=== PATIENT | male | born 1960 | race Caucasian/White ===

== ENCOUNTER 2023-07-04 07:55 | Outpatient (CLI) | payer OTHER, SELFPAY | END 2023-07-04 07:56 | disposition home or self-care (01) | LOC: NFLDREF 07-06 09:52 | PROVIDERS: PCP Family Medicine; Referring Provider Family Medicine; Visit Provider Family Medicine | DX: E78.00 Pure hypercholesterolemia, unspecified (principal); R79.89 Other specified abnormal findings of blood chemistry | CPT/HCPCS: 80061; 80076 ==

== ENCOUNTER 2023-07-21 09:51 | Outpatient (CLI) | payer OTHER, SELFPAY | END 2023-07-21 09:52 | disposition home or self-care (01) | LOC: FBOREF 09:53 | PROVIDERS: PCP Family Medicine; Visit Provider Family Medicine | DX: N52.9 Male erectile dysfunction, unspecified (principal); R79.89 Other specified abnormal findings of blood chemistry | CPT/HCPCS: 84270; 84402; 84403 ==

== ENCOUNTER 2024-05-30 08:11 | Outpatient (CLI) | payer OTHER, SELFPAY ==
--- OUTSIDE RECORDS SUMMARY | 2024-06-01 09:40 | XMS_ITS | Clinical Summary ---
Author Organization [place] Address [address] [place] [address] Care Team Providers Care Highway Administrative Engineer Name Role Phone Momo Beyer MD Primary Care Provider [phone] Huma Baeza MD Unavailable [phone] Jody Vallejo APRN GRANITE CUTTER Unavailable Jorge Gonzales MD Unavailable [phone] Brendan Martino MD Unavailable [phone] Hilario Levine MD Unavailable Allergies No known active allergies Medications Medication Sig Dispensed Refills Start Date End Date Status loratadine (CLARITIN) 10 MG tablet Take 10 mg by mouth daily Active Naproxen Sodium (ALEVE PO) Active multivitamin w/minerals (THERA-VIT-M) tablet Take 1 tablet by mouth daily Active [place]-3 Fatty Acids (OMEGA-3 FISH OIL PO) Take 1 g by mouth daily Active ASPIRIN PO Take 81 mg by mouth Active fluticasone (FLONASE) 50 MCG/ACT nasal spray 1 09/01/2018 Ac tive cetirizine (ZYRTEC) 10 MG tablet Take 10 mg by mouth Active rosuvastatin (CRESTOR) 5 MG tablet 05/07/2019 Active tadalafil (CIALIS) 5 MG tablet 04/14/2024 Active valACYclovir (VALTREX) 1000 mg tabletIndications:Herp es zoster without complication Take 1 tablet (1,000 mg) by mouth 3 times daily for 7 days 21 tablet 05/16/2024 Active Active Problems Problem Noted Date Diagnosed Date Seasonal allergic rhinitis due to pollen 016 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 11/06/2013 Encounters Date Type Department Care Team Description 05/16/2024 12:00 PM CDT Office Visit [facility] [address] [place] [address] Zari Pastor MD Herpes zoster without complication (Primary Dx) 05/16/2024 Travel from Last 3 Months Immunizations Name Administration Dates Next Due Influenza (IIV3) PF 09/14/2016, 3,09/16/2011,09/24/2010,08/07/20 09,09/13/2008,08/29/2007,10/07/2003 TDAP Vaccine (Boostrix) 07/13/2016 Family History Medical History Relation Comments Sleep Apnea Brother 3 Alzheimer Disease Father Alzheimer Disease Mother Breast Cancer Mother Diabetes Mother Hypertension Mother Sleep Apnea Mother Sleep Apnea Sister 3 Sleep Apnea Sister 4 Cancer No family hx of no family hx of skin cancers Melanoma No family hx of Skin Cancer No family hx of Relation Status Comments Brother 1 Alive healthy Brother 2 Alive healthy Brother 3 Father Alive Mother Sister 1 Alive healthy Sister 2 Alive healthy Sister 3 Sister 4 Social History Tobacco Use Types Packs/Day Years Used Date Smoking Tobacco: Never Smokeless Tobacco: Never Tobacco Cessation:Counseling Given: Not Answered Alcohol Use Standard Drinks/Week Comments Not Asked 0 (1 standard drink = 0.6 oz pur e alcohol) minimal PHQ-2 Answer Date Recorded PHQ-2 Score 0 03/24/2023 Adolescent Education Answer Date Record ed Getting School Help Needed Not on file 07/29 Sex and Gender Information Value Date Recorded Sex Assigned at Male 02/03/2019 7:44 PM CDT Gender Identity Male 02/03/2019 7:44 PM CDT Sexual Orientation Choose not to disclose 2020 10:24 AM PURCHASING INTERN Last Filed Vital Signs Vital Sign Reading Time Taken Comments Blood Pressure 111/73 05/16/2024 11:54 AM CDT Pulse 104 05/16/2024 11:54 AM CDT Temperature 36.4 ??C (97.6 ??F) 05/16/2024 1 1:54 AM CDT Respiratory Rate 18 06/26/2013 4:15 PM CDT Oxygen Saturation 95% 05/16/2024 11: 54 AM CDT Inhaled Oxygen Concentration - - Weight 104.9 kg (231 lb 3.2 oz) 016 12:48 PM PURCHASING INTERN Height 177.3 cm (5' 9.8) 09/14/2016 12 :48 PM PURCHASING INTERN Body Mass Index 33.36 09/14/2016 12:48 PM PURCHASING INTERN Plan of Treatment Upcoming Encounters Date Type Department Care Team (Late st Contact Info) Description 06/21/2024 8:00 AM CDT Office Visit [facility] [address] [place] [address] Hilario Levine MD [address] [place] [address] [id number] Health Maintenance Due Date Last Done Comments ADVANCE CARE PLANNING 1962 ANNUAL REVIEW OF HM ORDERS 1962 CT COLONOGRAPHY 1962 FIT 1962 FLEX SIG 1962 YEARLY PREVENTIVE VISIT 1962 sDNA (Cologuard) 1962 COLONOSCOPY 1972 COLORECTAL CANCER SCREENING 1972 HIV SCREENING 1977 ZOSTER IMMUNIZATION (1 of 2) 2012 LIPID 12/27/2017 12/27/2016 GLUCOSE 12/27/2019 12/27/2016 RSV VACCINE ( & 60+) (1 - 1-dose 60+ series) 2022 COVID-19 Vaccine (3 - 2022- season) 2023 03/26/2021, 03/05/2021 PHQ-2 (once per calendar year) 2023 03/24/2023, 03/15/2022, 03/12/2020, Additional history exists INFLUENZA VACCINE (#1) 2024 , 08/30/2022, 08/30/2022, Additional history exists DTAP/TDAP/TD IMMUNIZATION (8 - Td or Tdap) 04/16/2032 04/16/2022, 07/13/2016, 12/21/2011, Additional history exists HEPATITIS C SCREENING Completed 12/27/2016 HPV IMMUNIZATION Aged Out No longer e ligible based on patient's age to complete this topic IPV IMMUNIZATION Aged Out No longer e ligible based on patient's age to complete this topic MENINGITIS IMMUNIZATION Aged Out No l onger eligible based on patient's age to complete this topic Pneumococcal Vaccine: Pediatrics (0 to 5 Years) and At-Risk Patients (6 to 64 Years) Aged Out No longer eligible based on patient's age to complete this topic RSV MONOCLONAL ANTIBODY Aged Out No l onger eligible based on patient's age to complete this topic Procedures Procedure Name Priority Date/Time Associated Diagnosis Comments BASIC METABOLIC PANEL Routine 12/27/2016 8:38 AM PURCHASING INTERN Family history of hypercholesterolemia HEPATITIS C SCREEN REFLEX TO HCV RNA QUANT AND GENOTYPE Routine 12/27/2016 8:38 AM PURCHASING INTERN Need for hepatitis C screening test LIPID REFLEX TO DIRECT LDL PANEL Routine 12/27/2016 8:38 AM PURCHASING INTERN Family history of hypercholesterolemia from Last 3 Months or Most Recently Relevant to Health Maintenance Results * Hepatitis C Screen Reflex to HCV RNA Quant and Genotype (12/27/2016 8:38 AM PURCHASING INTERN) Hepatitis C Antibody Nonreactive Assay performance characteristics have not been established for newborns, infants, and children NR [facility] Blood specimen (specimen) 12/27/2016 8:38 AM PURCHASING INTERN 12/27/2016 8:39 AM PURCHASING INTERN Jody Vallejo APRN GRANITE CUTTER LAB - BLOOD O RDERABLES [facility] [address] [place] [address] * (ABNORMAL) Lipid panel reflex to direct LDL - -(Today) (12/27/2016 8:38 AM PURCHASING INTERN) Cholesterol 167 <200 mg/dL [facility] Triglycerides 78 <150 mg/dL [facility] HDL Cholesterol 40 >39 mg/dL [facility] LDL Cholesterol Calculated 112(H) <100 mg/dL [facility] Comment: Above desirable: ??100-129 mg/dl Borderline High: ??130-159 mg/dL High: ? 160-189 mg/dL Very high: ? >189 mg/dl Non HDL Cholesterol 127 <130 mg/dL [facility] Blood specimen (specimen) 12/27/2016 8:38 AM PURCHASING INTERN 12/27/2016 8:39 AM PURCHASING INTERN Jody Vallejo APRN GRANITE CUTTER LAB - BLOOD O RDERABLES [address] [phone] * Basic metabolic panel (12/27/2016 8:38 AM PURCHASING INTERN) Sodium 141 133 - 144 mmol/L [facility] Potassium 4.5 3.4 - 5.3 mmol/L [facility] Chloride 107 94 - 109 mmol/L [facility] Carbon Dioxide 27 20 - 32 mmol/L [facility] Anion Gap 6 3 - 14 mmol/L [facility] Glucose 86 70 - 99 mg/dL [facility] Urea Nitrogen 17 7 - 30 mg/dL [facility] Creatinine 0.84 0.66 - 1.25 mg/dL [facility] GFR Estimate >90 Non GFR Calc >60 mL/min/1. 7m2 [facility] GFR Estimate If Black >90 GFR Calc >60 mL/min/1. 7m2 [facility] Calcium 8.9 8.5 - 10.1 mg/dL [facility] Blood specimen (specimen) 12/27/2016 8:38 AM PURCHASING INTERN 12/27/2016 8:39 AM PURCHASING INTERN Jody Vallejo APRN GRANITE CUTTER LAB - BLOOD O RDERABLES [facility] [address] [address], [facility] [[email or web address]] [phone] from Last 3 Months or Most Recently Relevant to Health Maintenance Care Teams Highway Administrative Engineer Relationship Specialty Start Date End Date Momo Beyer MD [facility] [address] [place] [address] PCP - General Family Practice 12/15/15 Huma Baeza MD 420 [facility] [address] [place], [place] [address] Dermatology 12/21/16 Jody Vallejo APRN GRANITE CUTTER 420 [facility] [address] [place], [place] [address] Nurse Practitioner Nurse Practitioner 12/21/16 Jorge Gonzales MD [address] [place] [address] Dermatology 03/08/19 Brendan Martino MD [facility] [address] [place] [address] [id number] Assigned Surgical Provider 11/06/22 Hilario Levine MD [address] [place] [address] Medical Student 03/02/24
--- OUTSIDE RECORDS SUMMARY | 2024-06-01 09:41 | XMS_ITS | Encounter Summary ---
Author Organization [facility] Address [address] [place] [address]. [place] [address] Care Team Providers Care Data Operations Manager Name Role Phone Heath Paris MD Unavailable Momo Beyer MD Primary Care Provider [phone] Huma Baeza MD Unavailable Jody Vallejo APRN COMMUNITY RECREATION COORDINATOR Unavailable Jorge Gonzales MD Unavailable Huma Baeza MD Unavailable Huma Baeza MD Unavailable Brendan Martino MD Unavailable Hilario Levine MD Unavailable Encounter Details Date Type Department Care Team (Late st Contact Info) Description 12/30/2016 [facility] [place] [facility] [address] [facility] [address] 4th [place] [address] Jody Vallejo APRN COMMUNITY RECREATION COORDINATOR [address] [facility] [address] [place] [address] Social History Tobacco Use Types Packs/Day Years Used Date Smoking Tobacco: Never Alcohol Use Standard Drinks/Week Comments Not Asked 0 (1 standard drink = 0.6 oz pur e alcohol) minimal Sex and Gender Information Value Date Recorded Sex Assigned at Male 02/03/2019 7:44 PM CDT Gender Identity Male 02/03/2019 7:44 PM CDT Sexual Orientation Choose not to disclose 2020 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 [address] [place] [address] PCP - General Family Practice 12/15/15 Heath Paris MD [facility] [address] [place] [address] Dermatology 12/15/15 05/23/18 Huma Baeza MD 420 [facility] [address] [place], [place] [address] Dermatology 12/21/16 Jody Vallejo, CLOTH PICKER COMMUNITY RECREATION COORDINATOR 420 [facility] [address] [place], [place] 3[address] Nurse Practitioner Nurse Practitioner 12/21/16 Jorge Gonzales MD [address] [place] [id number] Dermatology 03/08/19 Huma Baeza MD [address] [address] Assigned Pediatric Specialist Provider 08/29/20 12/07/20 Huma Baeza MD [address] [address] Assigned Surgical Provider 08/29/20 11/05/22 Brendan Martino MD [facility] [address] [address] Assigned Surgical Provider 11/06/22 Hilario Levine MD [address] [place], [place] [address] Medical Student 03/02/24 documented as of this encounter
--- OUTSIDE RECORDS SUMMARY | 2024-06-01 09:41 | XMS_ITS | Clinical Summary ---
Author Organization [facility] Address [place], [place] [address] Care Team Providers Care Fibreglass Gun Hand Name Role Phone Momo Beyer MD Primary Care Provider [phone] Momo Beyer MD Unavailable [phone] Allergies No known active allergies Medications Medication Sig Dispensed Refills Start Date End Date Status diphenhydrAMINE (BENADRYL) 25 mg capsule Take 50 mg by mouth every 4 hours if needed. Active ibuprofen (ADVIL; MOTRIN) 200 mg capIndications:pain Take 400 mg by mouth 4 times daily if needed. Indications: PAIN Active multivitamin (MVI) tabletIndications:vi tamin deficiency prevention Take 1 tablet by mouth once daily. Indications: VITAMIN DEFICIENCY PREVENTION Active mometasone, 50 mcg each actuation, nasal (NASONEX) 50 mcg/actuation nasal spray Inhale 2 Sprays into both nostrils once daily. As needed Active phenylephrine (SUDAFED PE) 10 mg tabletIndications:na jung congestion Take 10 mg by mouth every 6 hours if needed. Indications: NASAL CONGESTION Active cetirizine (ZYRTEC) 10 mg tablet Take 10 mg by mouth. 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 Lichen simplex 06/29/2014 Tubular adenoma of colon 11/06/2013 Immunizations Name Administration Dates Next Due Influenza, High-dose Inactivated 10/19/2013 Tdap 12/21/2011 Family History Medical History Relation Name Comments Good Health Father Cancer-breast Mother Diabetes Mother Relation Name Status Comments Father Mother Social History Tobacco Use Types Packs/Day Years Used Date Smoking Tobacco: Never Smokeless Tobacco: Never Alcohol Use Standard Drinks/Week Comments Yes 0 (1 standard drink = 0.6 oz pur e alcohol) rarely Sex and Gender Information Value Date Recorded Sex Assigned at Not on file Gender Identity Not on file Sexual Orientation Not on file Obstetrics History Last Filed Vital Signs Vital Sign Reading Time Taken Comments Blood Pressure 126/82 09/14/2022 11:54 AM MANAGER OPERATING Pulse 92 09/14/2022 11:54 AM MANAGER OPERATING Temperature 36.4 ??C (97.6 ??F) 08/13/2022 1:01 PM CD T Respiratory Rate 16 08/13/2022 1:01 PM CDT Oxygen Saturation 97% 08/13/2022 1:01 PM CDT Inhaled Oxygen Concentration - - Weight 95.7 kg (211 lb) 08/13/2022 1:01 PM CDT Height 180.3 cm (5' 11) 04/16/2022 3:35 AM CDT Body Mass Index 29.43 04/16/2022 3:35 AM CDT Plan of Treatment Health Maintenance Due Date Last Done Comments Depression screening for age 12+ 1974 HIV for age 15-65 1977 BMI (ht and wt on same day) for age 18+ 1980 Hepatitis C screening for ag e 18-79 1980 Colonoscopy through age 75 2007 Lipids for age 45-75 2007 Zoster (shingles) series for age 50+ (1 of 2) 2012 Tetanus booster 12/21/2021 12/21/2011 COVID-19 vaccine series ( season) 2023 03/26/2021, 03/05/2021 Influenza for age 50-64 07/08/2024 Tdap Completed 12/21/2011 Pneumococcal series for age 6-64 Aged Out No longer eligible b ased on patient's age to complete this topic Advance Directives * Full Code (Latest Code Status on File) Date Activated Date Inactivated Comments 11/06/2013 7:47 AM 11/06/2013 10:08 AM Care Teams Fibreglass Gun Hand Relationship Specialty Start Date End Date Momo Beyer MD [address] [place] [address] PCP - General Family Practice 03/09/20 Momo Beyer MD [address] [place] [address] Family Practice 03/09/20
--- OUTSIDE RECORDS SUMMARY | 2024-06-01 09:41 | XMS_ITS | Referral Summary ---
Author Organization [facility] Address [address] [facility] [place] [address] Care Team Providers Care Program Services Assistant Name Role Phone Momo Beyer MD Primary Care Provider Huma Baeza MD Unavailable [phone] Jody Vallejo APRN THREAD CHECKER Unavailable Jorge Gonzales MD Unavailable Brendan Martino MD Unavailable [phone] Hilario Levine MD Unavailable Encounters Date Type Department Care Team Description 05/16/2024 Travel 05/16/2024 12:00 PM CDT Office Visit [facility] [address] [address] Zari Pastor MD Herpes zoster without complication (Primary Dx) from Last 3 Months Allergies No known active allergies Medications Medication Sig Dispensed Refills Start Date End Date Status loratadine (CLARITIN) 10 MG tablet Take 10 mg by mouth daily Active Naproxen Sodium (ALEVE PO) Active multivitamin w/minerals (THERA-VIT-M) tablet Take 1 tablet by mouth daily Active [place]-3 Fatty Acids (OMEGA-3 FISH OIL PO) Take [...] simplex 06/29/2014 Tubular adenoma of colon, 0.2cm [facility]. 11/06/2013 Immunizations Name Administration Dates Next Due Influenza (IIV3) PF 09/14/2016, 3,09/16/2011,09/24/2010,08/07/20 09,09/13/2008,08/29/2007,10/07/2003 TDAP Vaccine (Boostrix) 07/13/2016 Social History Tobacco Use Types Packs/Day Years [...] Choose not to disclose 2020 10:24 AM LEGAL PROJECT MANAGER Last Filed Vital Signs Vital Sign Reading Time Taken Comments Blood Pressure 111/73 05/16/2024 11:54 AM CDT Pulse 104 05/16/2024 11:54 AM CDT Temperature 36.4 ??C (97.6 ??F) 05/16/2024 1 1:54 AM CDT Respiratory Rate 18 06/26/2013 4:15 PM CDT Oxygen Saturation 95% 05/16/2024 11: 54 AM CDT Inhaled Oxygen Concentration - - Weight 104.9 kg (231 lb 3.2 oz) 016 12:48 PM LEGAL PROJECT MANAGER Height 177.3 cm (5' 9.8) 09/14/2016 12 :48 PM LEGAL PROJECT MANAGER Body Mass Index 33.36 09/14/2016 12:48 PM LEGAL PROJECT MANAGER Plan of Treatment Upcoming Encounters Date Type Department Care Team (Late st Contact Info) Description 06/21/2024 8:00 AM CDT Office Visit [facility] [address] 3rd [place] [address] Hilario Levine MD [address] [place] [address] Procedures Procedure Name Priority Date/Time Associated Diagnosis Comments BASIC METABOLIC PANEL Routine 12/27/2016 8:38 AM LEGAL PROJECT MANAGER Family history of hypercholesterolemia HEPATITIS C SCREEN REFLEX TO HCV RNA QUANT AND GENOTYPE Routine 12/27/2016 8:38 AM LEGAL PROJECT MANAGER Need for hepatitis C screening test LIPID REFLEX TO DIRECT LDL PANEL Routine 12/27/2016 8:38 AM LEGAL PROJECT MANAGER Family history of hypercholesterolemia from Last 3 Months or Most Recently Relevant to Health Maintenance Results * Hepatitis C Screen Reflex to HCV RNA Quant and Genotype (12/27/2016 8:38 AM LEGAL PROJECT MANAGER) Hepatitis C Antibody Nonreactive Assay performance characteristics have not been established for newborns, infants, and children NR [facility] Blood specimen (specimen) 12/27/2016 8:38 AM LEGAL PROJECT MANAGER 12/27/2016 8:39 AM LEGAL PROJECT MANAGER Jody Vallejo APRN THREAD CHECKER LAB - BLOOD O RDERABLES [facility] [address] [place] [address] * (ABNORMAL) Lipid panel reflex to direct LDL - -(Today) (12/27/2016 8:38 AM LEGAL PROJECT MANAGER) Cholesterol 167 <200 mg/dL [facility] Triglycerides 78 <150 mg/dL [facility] HDL Cholesterol 40 >39 mg/dL [facility] LDL Cholesterol Calculated 112(H) <100 mg/dL [facility] Comment: Above desirable: ??100-129 mg/dl Borderline High: ??130-159 mg/dL High: ? 160-189 mg/dL Very high: ? >189 mg/dl Non HDL Cholesterol 127 <130 mg/dL [facility] Blood specimen (specimen) 12/27/2016 8:38 AM LEGAL PROJECT MANAGER 12/27/2016 8:39 AM LEGAL PROJECT MANAGER Jody Vallejo APRN THREAD CHECKER LAB - BLOOD O RDERABLES Performing Organization Address City/State/[facility] Co de Phone Number [address] [phone] * Basic metabolic panel (12/27/2016 8:38 AM LEGAL PROJECT MANAGER) Sodium 141 133 - 144 mmol/L [facility] Potassium 4.5 3.4 - 5.3 mmol/L [facility] Chloride 107 94 - 109 mmol/L [facility] Carbon Dioxide 27 20 - 32 mmol/L [facility] Anion Gap 6 3 - 14 mmol/L [facility] Glucose 86 70 - 99 mg/dL [facility] Urea Nitrogen 17 7 - 30 mg/dL [facility] Creatinine 0.84 0.66 - 1.25 mg/dL [facility] GFR Estimate >90 Non GFR Calc >60 mL/min/1. 7m2 [facility] GFR Estimate If Black >90 GFR Calc >60 mL/min/1. 7m2 [facility] Calcium 8.9 8.5 - 10.1 mg/dL [facility] Blood specimen (specimen) 12/27/2016 8:38 AM LEGAL PROJECT MANAGER 12/27/2016 8:39 AM LEGAL PROJECT MANAGER Jody M Overkamp DAIRY BACTERIOLOGIST THREAD CHECKER LAB - BLOOD O RDERABLES [facility] [place] [address] [place], [place] [address] [phone] from Last 3 Months or Most Recently Relevant to Health Maintenance Care Teams Program Services Assistant Relationship Specialty Start Date End Date Momo Beyer MD [facility] [address] [place] [address] PCP - General Family Practice 12/15/15 Huma Baeza MD 420 [facility] [address] [place], [place] [address] Dermatology 12/21/16 Jody Vallejo APRN THREAD CHECKER 420 [facility] [address] [place], [place] [address] Nurse Practitioner Nurse Practitioner 12/21/16 Jorge Gonzales MD [address] [place] [place] [address] [id number] Dermatology 03/08/19 Brendan Martino MD [address] 747[address] Assigned Surgical Provider 11/06/22 Hilario Levine MD [address] [place] [id number] Medical Student 03/02/24
--- OUTSIDE RECORDS SUMMARY | 2024-06-01 09:41 | XMS_ITS | Encounter Summary ---
Author Organization [facility] Address [address] [place] [address]. [place] [address] Care Team Providers Care E Mail System Administrator Name Role Phone Momo Beyer MD Primary Care Provider [phone] Huma Baeza MD Unavailable [phone] Jody Vallejo APRN IT RECRUITER Unavailable [phone] Jorge Gonzales MD Unavailable [phone] Huma Baeza MD Unavailable [phone] Huma Baeza MD Unavailable [phone] Brendan Martino MD Unavailable [phone] Hilario Levine MD Unavailable [phone] Encounter Details Date Type Department Care Team (Late Contact Info) Description 10/04/2018 [facility] [address] [facility] 3rd [place] [address] [facility] [place] Social History Tobacco Use Types Packs/Day Years [...] Choose not to disclose 2020 10:24 AM CLERK ANALYST documented as of this encounter Plan of Treatment Upcoming Encounters Date Type Department Care Team (Late Contact Info) Description 06/21/2024 8:00 AM CDT Office Visit [facility] [place] [address] [facility] 3rd [place] [phone] Hilario Levine MD [address] [place] [address] documented as of this encounter Visit Diagnoses Not on filedocumented in this encounter Care Teams E Mail System Administrator Relationship Specialty Start Date End Date Momo Beyer MD [facility] [address] [place] [address] PCP - General Family Practice 12/15/15 Huma Baeza MD [address] [address] Dermatology 12/21/16 Jody Vallejo APRN IT RECRUITER 420 [facility] [address] [place] [address] Nurse Practitioner Nurse Practitioner 12/21/16 Jorge Gonzales MD [address] [place] [address] Dermatology 03/08/19 Huma Baeza MD 420 [facility] [address] [place] [address] Assigned Pediatric Specialist Provider 08/29/20 12/07/20 Huma Baeza MD 420 [facility] [address] [place] [address] Assigned Surgical Provider 08/29/20 11/05/22 Brendan Martino MD [facility] [address] [id number] Assigned Surgical Provider 11/06/22 Hilario Levine MD [address] [place] [id number] Medical Student 03/02/24 documented as of this encounter
--- OUTSIDE RECORDS SUMMARY | 2024-06-01 09:41 | XMS_ITS | Data Portability ---
Author Organization [facility], [facility] Address [address] [facility] [address] [place] [address] Assessment No assessment recorded. Plan of Treatment Reminders Order Date Submit Date Provider Last Modified By Organization Details Last Modified Time Details Appointments None record ed. Lab None record ed. Referral None record ed. Procedures None record ed. Surgeries None record ed. Imaging None record ed. Medication Orders None record ed. Patient TargetsNo targets recorded. Patient InstructionsNo instructions recorded. Reason for Referral None Reported. Medical Equipment None Reported. Vitals None Recorded Social History None recorded. Functional Status None recorded. Mental Status None recorded. Family History Nothing Reported. Medical History No medical history recorded. Past Encounters Encounter ID Performer Location Encounter Start Date Encounter Closed Date Diagnosis/Indication Diagnosis SNOMED-CT Code [id number] [address] [place], [place] [address] [place] [address] 08/27/2020 09:10:54 08/27/2020 09:54:49 Health Concerns Section Related Observation LastModified by Organization Detai ls LastModified Time None Recorded Concern Status LastModified by Organization Details LastModified Time None Recorded Advance Directives Directive None Recorded Payers None recorded.
--- OUTSIDE RECORDS SUMMARY | 2024-06-01 09:41 | XMS_ITS | Encounter Summary ---
Author Organization [place] Address [address] [place] [address]. [place] [address] Care Team Providers Care Clerk Rating Name Role Phone Momo Beyer MD Primary Care Provider [phone] Huma Baeza MD Unavailable [phone] Jody Vallejo APRN [facility] Unavailable [phone] Jorge Gonzales MD Unavailable [phone] Huma Baeza MD Unavailable [phone] Huma Baeza MD Unavailable [phone] Brendan Martino MD Unavailable [phone] Hilario Levine MD Unavailable [phone] Encounter Details Date Type Department Care Team (Late st Contact Info) Description 02/19/2020 MyC Medical Advice [facility] Dermatology [address] [facility] [address] 3rd [place] [address] Huma Baeza MD 420 [facility] [address] [place] [address] Social History Tobacco Use Types [...] 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 Preeti Capellan LPN documented in this encounter Plan of Treatment Upcoming Encounters Date Type Department Care Team (Late st Contact Info) Description 06/21/2024 8:00 AM CDT Office Visit [facility]ology [facility] [place] [address] [facility] 3rd [place] [phone] Hilario Levine MD [address] [place], [place] [address] documented as of this encounter Visit Diagnoses Not on filedocumented in this encounter Care Teams Clerk Rating Relationship Specialty Start Date End Date Momo Beyer MD [facility] [address] [place] [address] PCP - General Family Practice 12/15/15 Huma Baeza MD [address] [facility] [address] [place], [place] [address] Dermatology 12/21/16 Jody Vallejo, GOVERNMENT AFFAIRS FELLOW GASTROENTEROLOGY NURSE [address] [facility] [address] [place], [place] [address] Nurse Practitioner Nurse Practitioner 12/21/16 Jorge Gonzales MD 909 [place] [address] Dermatology 03/08/19 Huma Baeza MD [address] [address] Assigned Pediatric Specialist Provider 08/29/20 12/07/20 Huma Baeza MD [address] [address] Assigned Surgical Provider 08/29/20 11/05/22 Brendan Martino MD [facility] [address] [address] Assigned Surgical Provider 11/06/22 Hilario Levine MD [address] [place], [place] [address] Medical Student 03/02/24 documented as of this encounter
--- OUTSIDE RECORDS SUMMARY | 2024-06-01 09:41 | XMS_ITS | Encounter Summary ---
Author Organization [place] Address [address] [place] [address]. 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 as of this encounter Plan of Treatment Upcoming Encounters Date Type Department Care Team (Late st Contact Info) Description 06/21/2024 8:00 AM CDT Office Visit [facility] D[facility] [address] 3rd [place] [phone] Hilario Levine MD [address] [place], [place] [address] documented as of this encounter Visit Diagnoses Not on filedocumented in this encounter Care Teams Breaker Unit Assembler Relationship Specialty Start Date End Date Momo Beyer MD [facility] [address] [place] [address] PCP - General Family Practice 12/15/15 Huma Baeza MD [address] [address] Dermatology 12/21/16 Jody Vallejo APRN [facility] 420 [facility] 7[address] [place], [place] [address] Nurse Practitioner Nurse Practitioner 12/21/16 Jorge Gonzales MD 909 [place], [place] [address] Dermatology 03/08/19 Brendan Martino MD [facility] [address] [address] Assigned Surgical Provider 11/06/22 Hilario Levine MD [address] [place], [place] [address] Medical Student 03/02/24 documented as of this encounter
--- OUTSIDE RECORDS SUMMARY | 2024-06-01 09:41 | XMS_ITS | Encounter Summary ---
Author Organization [facility] Address [address] [place] [address]. [place] [address] Care Team Providers Care Sample Hand Name Role Phone Momo Beyer MD Primary Care Provider [phone] Huma Baeza MD Unavailable [phone] Jody Vallejo APRN [facility] Unavailable [phone] Jorge Gonzales MD Unavailable [phone] Huma Baeza MD Unavailable [phone] Huma Baeza MD Unavailable [phone] Brendan Martino MD Unavailable [phone] Hilario Levine MD Unavailable [phone] Encounter Details Date Type Department Care Team (Late st Contact Info) Description 03/05/2020 MyC Medical Advice [facility] Dermatology [address] [facility] [address] 3rd [place] [address] Huma Baeza MD 420 [facility] 98 [place] [address] Social History Tobacco Use Types [...] 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 Dermatology Clinic [place] 909 [facility] 3rd [place] [address] Hilario Levine MD 516 [place] [address] documented as of this encounter Visit Diagnoses Not on filedocumented in this encounter Care Teams Sample Hand Relationship Specialty Start Date End Date Momo Beyer MD [facility] 3[facility] [address] [place] [address] PCP - General Family Practice 12/15/15 Huma Baeza MD [address] [place] [address] Dermatology 12/21/16 Jody Vallejo APRN CNP [address] [place] [address] [address] [place], [place] [address] Nurse Practitioner Nurse Practitioner 12/21/16 Jorge Gonzales MD [address] [place] [address] Dermatology 03/08/19 Huma Baeza MD [address] [address] Assigned Pediatric Specialist Provider 08/29/20 12/07/20 Huma Baeza MD [address] [address] Assigned Surgical Provider 08/29/20 11/05/22 Brendan Martino MD [address] [address] Assigned Surgical Provider 11/06/22 Hilario Levine MD [address] [place] [address] Medical Student 03/02/24 documented as of this encounter
--- OUTSIDE RECORDS SUMMARY | 2024-06-01 09:41 | XMS_ITS | Encounter Summary ---
Author Organization [place] Address [address] [place] [address]. [place] [address] Care Team Providers Care Electrologist Name Role Phone Momo Beyer MD Primary Care Provider [phone] Huma Baeza MD Unavailable [phone] Jody Vallejo APRN [facility] Unavailable [phone] Jorge Gonzales MD Unavailable [phone] Huma Baeza MD Unavailable [phone] Huma Baeza MD Unavailable [phone] Brendan Martino MD Unavailable [phone] Hilario Levine MD Unavailable [phone] Encounter Details Date Type Department Care Team (Late st Contact Info) Description 03/08/2019 MyC Medical Advice [facility] Dermatology 9[address] [facility] [address] 3rd [place] [address] Huma Baeza MD 420 [facility] 98 [place] [address] Social History Tobacco Use Types [...] 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 Plan of Treatment Upcoming Encounters Date Type Department Care Team (Late st Contact Info) Description 06/21/2024 8:00 AM CDT Office Visit [facility] Dermatology [facility] [place] 909 [facility] 3rd [place] [address] Hilario Levine MD [address] [place] [address] documented as of this encounter Visit Diagnoses Not on filedocumented in this encounter Care Teams Electrologist Relationship Specialty Start Date End Date Momo Beyer MD [facility] [address] [place] [address] PCP - General Family Practice 12/15/15 Huma Baeza MD [address] [place] [address] Dermatology 12/21/16 Jody Vallejo APRN CNP [address] [place] [address] 7[address] [place], [place] [address] Nurse Practitioner Nurse Practitioner 12/21/16 Jorge Gonzales MD [address] [place] [address] Dermatology 03/08/19 Huma Baeza MD [address] [address] Assigned Pediatric Specialist Provider 08/29/20 12/07/20 Huma Baeza MD [address] [address] Assigned Surgical Provider 08/29/20 11/05/22 Brendan Martino MD [address] [address] Assigned Surgical Provider 11/06/22 Hilario Levine MD [address] [place] [address] Medical Student 03/02/24 documented as of this encounter
--- OUTSIDE RECORDS SUMMARY | 2024-06-01 09:41 | XMS_ITS | Encounter Summary ---
Author Organization [place] Address [address] [facility] [place] [address] Care Team Providers Care Life Advisor Name Role Phone Momo Beyer MD Primary Care Provider [phone] Huma Baeza MD Unavailable [phone] Jody Vallejo APRN [facility] Unavailable [phone] Jorge Gonzales MD Unavailable [phone] Brendan Martino MD Unavailable [phone] Hilario Levine MD Unavailable [phone] Reason for Visit * Reason Comments Urgent Care Mid left Back pain a nd rash under left breast and on back started Tuesday. Rash is painful and some itching. Some diarrhea yesterday. 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 Use ibuprofen or Tylenolas needed to help with pain and you can add some Benadryl on top of the cetirizine to help with itching. Ibuprofen 600 mg three times daily. Use Tylenol between ibuprofen doses for additional pain control. documented in this encounter Progress Notes * Zari Pastor MD - 05/16/2024 12:00 PM CDT ICD-10-CM 1. Herpes zoster without complication B02.9 valACYclovir (VALTREX) 1000 mg tablet No evidence of secondary bacterial infection of any lesions. PLAN: Patient Instructions Take Valtrex three times daily for 7 days to treat your shingles outbreak. Use ibuprofen or Tylenolas needed to help with pain and you can add some Benadryl on top of the cetirizine to help with itching. Ibuprofen 600 mg three times daily. Use Tylenol between ibuprofen doses for additional pain control. SUBJECTIVE: Vasu Barfield is a 63 year old male who presents to today with a L sided rash that started on Tuesday. Painful and some itching. No fever. Rash started on back and wraps around L flank to L lower chest. OBJECTIVE: BP 111/73 (BP Location: Right arm, Patient Position: Sitting, Cuff Size: Adult Large) Pulse 104 Temp 97.6 ??F (36.4 ??C) (Tympanic) SpO2 95% GEN: well-appearing, in NAD Skin: L back, flank and chest with scattered areas of vesicular lesions on erythematous base c/w shingles, likely T6 or T7 dermatome. No crusting. documented in this encounter Plan of Treatment Upcoming Encounters Date Type Department Care Team (Late st Contact Info) Description 06/21/2024 8:00 AM CDT Office Visit [facility] Dermatology Clinic [place] [address] [place] [address] [address] [place] [phone] Hilario Levine MD 6 [place], [place] [phone] documented as of this encounter Visit Diagnoses Diagnosis Herpes zoster without complication- Primary documented in this encounter Care Teams Life Advisor Relationship Specialty Start Date End Date Momo Beyer MD [facility] [address] [place] [address] PCP - General Family Practice 12/15/15 Huma Baeza MD 420 [facility] 98 [place], [place] [address] Dermatology 12/21/16 Jody Vallejo APRN SUPPLY PLANNER 420 [facility] [address] [place], [place] [address] Nurse Practitioner Nurse Practitioner 12/21/16 Jorge Gonzales MD [address] [place] [id number] Dermatology 03/08/19 Brendan Martino MD [address] [address] Assigned Surgical Provider 11/06/22 Hilario Levine MD [address] [place] [address] Medical Student 03/02/24 documented as of this encounter
== END 2024-05-30 08:12 | disposition home or self-care (01) ==
LOC: NFLDREF 06-01 09:38
PROVIDERS: PCP Family Medicine; Referring Provider Family Medicine; Visit Provider Family Medicine
DX: Z00.00 Encounter for general adult medical examination without abnormal findings (principal); E78.5 Hyperlipidemia, unspecified; Z12.5 Encounter for screening for malignant neoplasm of prostate
CPT/HCPCS: 80053; 80061; G0103

== ENCOUNTER 2025-05-21 08:27 | Outpatient (CLI) | payer OTHER, SELFPAY | END 2025-05-21 08:28 | disposition home or self-care (01) | LOC: NFLDREF 05-23 13:04 | PROVIDERS: PCP Family Medicine; Referring Provider Family Medicine; Visit Provider Family Medicine | DX: E78.00 Pure hypercholesterolemia, unspecified (principal); Z12.5 Encounter for screening for malignant neoplasm of prostate | CPT/HCPCS: 80053; 80061; G0103 ==

== ENCOUNTER 2025-08-19 08:38 | Outpatient (CLI) | payer OTHER, SELFPAY ==
--- NOTE | 2025-08-19 09:57 | P.ANES_ITS ---
Anesthesia Charges Start Date/Time Anesthesia Start Date: 08/19/25 Anesthesia Start Time: 09:24 Stop Date/Time Anesthesia Stop Date: 08/19/25 Anesthesia Stop Time: 09:54 Coding CPT Codes CPT Codes: CIELO LWR INTST SCR COLSC - 58366 ([id number]) P2 - PATIENT W/MILD SYST DISEASE, QK - SUBMARINE WORKER 2-4 CNCRNT ANES PROC, QX - EMAIL MARKETING MANAGER SVC W/ MD MED DIRECTION
--- NOTE | 2025-08-19 09:57 | W.ANESCHARGE ---
Anesthesia Charges Start Date/Time Anesthesia Start Date: 08/19/25 Anesthesia Start Time: 09:24 Stop Date/Time Anesthesia Stop Date: 08/19/25 Anesthesia Stop Time: 09:54 Coding CPT Codes CPT Codes: CIELO LWR INTST SCR COLSC - 51612 ([id number]) P2 - PATIENT W/MILD SYST DISEASE, QK - FINANCIAL ASSISTANT 2-4 CNCRNT ANES PROC, QX - CUSTOMER SUCCESS ASSOCIATE SVC W/ MD MED DIRECTION
--- NOTE | 2025-08-19 11:03 | P.ANES_ITS ---
Anesthesia Charges Start Date/Time Anesthesia Start Date: 08/19/25 Anesthesia Start Time: 09:24 Stop Date/Time Anesthesia Stop Date: 08/19/25 Anesthesia Stop Time: 09:54 Coding CPT Codes CPT Codes: CIELO LWR INTST SCR COLSC - 01364 ([id number]) QK - CLINICAL RADIOLOGIST 2-4 CNCRNT CIELO PROC, QX - SANDBLAST OPERATOR SVC W/ MD MED DIRECTION, P2 - PATIENT W/MILD SYST DISEASE
--- NOTE | 2025-08-19 11:03 | W.ANESCHARGE ---
Anesthesia Charges Start Date/Time Anesthesia Start Date: 08/19/25 Anesthesia Start Time: 09:24 Stop Date/Time Anesthesia Stop Date: 08/19/25 Anesthesia Stop Time: 09:54 Coding CPT Codes CPT Codes: CIELO LWR INTST SCR COLSC - 72430 ([id number]) QK - CONVENTIONAL MACHINIST 2-4 CNCRNT CIELO PROC, QX - BULK GAS SPECIALIST SVC W/ MD MED DIRECTION, P2 - PATIENT W/MILD SYST DISEASE
== END 2025-08-19 08:39 | disposition home or self-care (01) ==
LOC: OP CLINIC 08:39
PROVIDERS: PCP Family Medicine; Visit Provider Internal Medicine
DX: Z12.11 Encounter for screening for malignant neoplasm of colon (principal); K64.8 Other hemorrhoids; K57.30 Diverticulosis of large intestine without perforation or abscess without bleeding; Z86.0100 Personal history of colon polyps, unspecified
CPT/HCPCS: 00812; 45378; J2704